=== PATIENT | male | born 1960 | race Caucasian/White ===

== ENCOUNTER 2016-11-04 07:06 | Emergency (ER) | payer OTHER ==
--- NOTE | ~2016-11-04 | CR211 ---
[facility]. [facility] A Service of [facility] & [facility] RADIOLOGY TEXT RESULTS PATIENT: NATACHA SEPULVEDA LOCATION: SED : 58 UNIT #: [id number] AGE: [address]: Miri Acuna MD SEX: M ORDER DR: [id number] [address] [id number] E MR#: [id number] Acc #: [id number] NAME: NATACHA SEPULVEDA. : 1960 SEX: M STUDY DATE/TIME: 11/04/2016 7:24 UNIT: SED ROOM: STUDY DESCRIPTION: CR Ribs Uni 2 View W PA Ch Rt Attending Physician: Miri Acuna M.D. Ordering Physician: Chelsea Not Listed Primary Care Physician: Lorenzo Zapata M.D. MEDICAL IMAGING REPORT This report is preliminary unless electronic signature is present. EXAM Right rib series. INDICATION 55-year-old male with pain to mid and lower right ribs after falling this morning. COMPARISON STUDIES No comparisons. FINDINGS No evidence of fracture. No evidence of a pneumothorax. Expiratory view of the lungs is unremarkable. IMPRESSION No evidence of rib fracture. Dictated by... Reinier Grossman M.D. THIS IS AN ELECTRONICALLY VERIFIED REPORT Reinier Grossman M.D. at 11/04/2016 11:53 AM CHAPO/leon TD: 11/04/2016 09:43 JOB #: [id number] MEDICAL IMAGING REPORT Page 1 of 1
[~2016-11-04 07:06] MED LIST: CIPRO PO; NO MEDICATIONS; OMEPRAZOLE20 M2 PO; OMEPRAZOLE40 MG PO; PEPCID40 MG PO; PRILOSEC; SYMBICORT 16010.2 GM INH; SYMBICORT INH; ZOFRAN ODT4 MG PO
== END 2016-11-04 08:19 | disposition home or self-care (01) ==
LOC: SED 07:06
DX: S20.211A Contusion of right front wall of thorax, initial encounter (principal); F17.210 Nicotine dependence, cigarettes, uncomplicated; W18.00XA Striking against unspecified object with subsequent fall, initial encounter; Y92.009 Unspecified place in unspecified non-institutional (private) residence as the place of occurrence of the external cause; Z88.5 Allergy status to narcotic agent; J44.9 Chronic obstructive pulmonary disease, unspecified
CPT/HCPCS: 71101; 96372; 99283; J1885

== ENCOUNTER 2016-12-30 11:03 | Emergency (ER) | payer OTHER ==
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
== END 2016-12-30 14:04 | disposition home or self-care (01) ==
LOC: SED 11:03
DX: S80.12XA Contusion of left lower leg, initial encounter (principal); J44.9 Chronic obstructive pulmonary disease, unspecified; F17.210 Nicotine dependence, cigarettes, uncomplicated; Z88.5 Allergy status to narcotic agent; V28.4XXA Motorcycle driver injured in noncollision transport accident in traffic accident, initial encounter; Y93.55 Activity, bike riding; Y92.488 Other paved roadways as the place of occurrence of the external cause
CPT/HCPCS: 73552; 99283